=== PATIENT | female | born 1975 | race Hispanic/Latino ===

== ENCOUNTER 2022-07-09 09:22 | Outpatient (CLI) | payer BC | END 2022-07-09 09:23 | disposition home or self-care (01) | LOC: BICMAMMO 09:22 | PROVIDERS: ATTEND Family Medicine | DX: N63.10 Unspecified lump in the right breast, unspecified quadrant (principal) | CPT/HCPCS: 77066; G0279 ==

== ENCOUNTER 2023-09-01 08:44 | Emergency (ER) | payer BC ==
[2023-09-01] MEDS ORDERED: Iopamidol-370 76% 500 ML MDV (1 ML CHARGE) ONE (09:19)
[2023-09-01 10:56] LABS: BHCG - Serum Negative (NEGATIVE); Pregs Control Background? CLEAR/WHITE (CLR/WHITE); Pregs Control Bar Appear? YES (CONTROL BAR)
[2023-09-01] MEDS ORDERED: Morphine 4 MG/ML VIAL ONE (10:56)
[2023-09-01] MEDS ORDERED: Ondansetron PF 4 MG/2 ML Vial ONE ×2 (10:57→11:32)
[2023-09-01 11:00] LABS: #Basophils 0.04 10x3/uL (0.0-0.2); %Basophils 0.9 % (0.0-1.0); %Eosinophils 3.5 % (0.0-10.0); %Lymphocytes 12.3 % (21.0-51.0); %Monocytes 8.3 % (0.0-10.0); %Neutrophils 74.8 % (42.0-75.0); Hematocrit 33.9 % (36.0-47.0); Hemoglobin 10.9 g/dL (12.0-16.0); Mean Corpuscular HGB CONC 32.2 g/dL (32.0-36.0); Mean Corpuscular Hemoglobin 31.1 pg (27.0-31.0); Mean Corpuscular Volume 96.9 fL (78.0-98.0); Platelet Count 146 10x3/uL (130-400); RBC Distribution Width 17.1 % (11.5-14.5)
[2023-09-01 11:06] LABS: ALT (SGPT) 27 U/L (8-55); AST (SGOT) 39 U/L (5-34); Albumin 3.1 g/dL (3.5-5.0); Alkaline Phosphatase 324 U/L (40-110); Anion Gap 19 mmol/L (10-20); BUN (Urea Nitrogen) 56 mg/dL (7.0-18.7); Bilirubin, Total 1.2 mg/dL (0.2-1.2); Calc. Creatinine Clearance 0 mL/min (70-130); Calcium 9.9 mg/dL (7.8-10.44); Carbon Dioxide 25 mmol/L (22-29); Chloride 96 mmol/L (98-107); Estimated GFR 8; Globulin 4.1 g/dL (2.4-3.5); Glucose 203 mg/dL (70-105); Lipase 53 U/L (8-78); Potassium 4.4 mmol/L (3.5-5.1); Protein, Total 7.2 g/dL (6.0-8.3); Sodium 136 mmol/L (136-145)
[2023-09-01 12:02] LABS: Troponin I 0.016 ng/mL (< 0.028)
== END 2023-09-01 12:24 | disposition home or self-care (01) ==
LOC: ERS 08:44
DX: I12.0 Hypertensive chronic kidney disease with stage 5 chronic kidney disease or end stage renal disease (principal); E11.22 Type 2 diabetes mellitus with diabetic chronic kidney disease; N18.6 End stage renal disease; R10.9 Unspecified abdominal pain; Z79.4 Long term (current) use of insulin; Z79.899 Other long term (current) drug therapy
CPT/HCPCS: 36416; 74177; 80053; 83690; 84484; 84703; 85025; 93005; 96374; 96375; J2270; J2405; Q9967

== ENCOUNTER 2024-01-23 11:44 | Inpatient (IN) | payer BC ==
[2024-01-23] MEDS ORDERED: Iopamidol-370 76% 500 ML MDV (1 ML CHARGE) ONE (12:26)
[2024-01-23 12:31] LABS: #Basophils 0.04 10x3/uL (0.0-0.2); %Basophils 0.3 % (0.0-1.0); %Eosinophils 1.4 % (0.0-10.0); %Lymphocytes 5.4 % (21.0-51.0); %Monocytes 4.9 % (0.0-10.0); %Neutrophils 86.5 % (42.0-75.0); Hematocrit 36.7 % (36.0-47.0); Hemoglobin 11.6 g/dL (12.0-16.0); Mean Corpuscular HGB CONC 31.6 g/dL (32.0-36.0); Mean Corpuscular Hemoglobin 30.4 pg (27.0-31.0); Mean Corpuscular Volume 96.1 fL (78.0-98.0); Mean Platelet Volume 12.2 fL (7.4-10.4); Platelet Count 172 10x3/uL (130-400); RBC Distribution Width 17.4 % (11.5-14.5); Red Blood Cell (RBC) Count 3.82 mill/uL (4.20-5.40)
[2024-01-23 12:50] LABS: ALT (SGPT) 33 U/L (8-55); AST (SGOT) 38 U/L (5-34); Albumin 2.9 g/dL (3.5-5.0); Alkaline Phosphatase 676 U/L (40-110); Anion Gap 14 mmol/L (10-20); BUN (Urea Nitrogen) 19 mg/dL (7.0-18.7); Bilirubin, Total 2.8 mg/dL (0.2-1.2); Calc. Creatinine Clearance 0 mL/min (70-130); Calcium 9.4 mg/dL (7.8-10.44); Carbon Dioxide 31 mmol/L (22-29); Chloride 93 mmol/L (98-107); Estimated GFR 18; Globulin 5.3 g/dL (2.4-3.5); Glucose 173 mg/dL (70-105); Magnesium 2.1 mg/dL (1.6-2.6); Potassium 3.3 mmol/L (3.5-5.1); Protein, Total 8.2 g/dL (6.0-8.3); Sodium 135 mmol/L (136-145)
[2024-01-23 12:54] LABS: Troponin I 0.017 ng/mL (< 0.028)
[2024-01-23] MEDS ORDERED: Cefepime 1 GM VIAL ONE (14:16)
[2024-01-23] MEDS ORDERED: Sodium Chloride 0.9% 100 ML ONE (14:16)
[2024-01-23] MEDS ORDERED: Vancomycin 1 GM/200 ML (FROZEN) BAG ONE (14:18)
[2024-01-23] MEDS ORDERED: Ipratropium/Albuterol 3 ML NEB NEB PRN (18:04)
[2024-01-23] MEDS ORDERED: Dextrose 50% Abboject 50 ML SYRINGE SLOW IVP PRN (18:05)
[2024-01-23] MEDS ORDERED: Glucagon 1 MG/ML KIT IM PRN (18:05)
[2024-01-23] MEDS ORDERED: Dextrose 5% in Water 1,000 ML IV PRN (18:05)
[2024-01-23] MEDS: Budesonide 0.5 MG/2 ML NEB INH SCH (19:20)
[2024-01-23] MEDS: Ipratropium/Albuterol 3 ML NEB NEB SCH (19:21)
[2024-01-23] MEDS: HYDROcodone/Acetaminophen 5/325 mg Tablet PO PRN (21:17)
[2024-01-23] MEDS: Insulin Regular, Human 100 UNIT/ML 10 ML VIAL SC PRN (21:18)
[2024-01-23] MEDS: Heparin 5,000 UNITS/ML VIAL SC SCH (21:20)
[2024-01-23 21:28] VITALS: BMI 31.1
[2024-01-23] MEDS ORDERED: Vancomycin Diaylsis Sliding Scale (Wt 71-99) FS SCH (21:45)
[2024-01-23] MEDS: Vancomycin HCl 750 MG in Sodium Chloride 0.9% 250 ML 250 ML IVPB SCH (22:22)
[2024-01-23] MEDS: Vancomycin 1 GM in Premix 1 BAG IVPB SCH (22:38)
[2024-01-24 05:09] LABS: #Basophils 0.03 10x3/uL (0.0-0.2); %Basophils 0.3 % (0.0-1.0); %Eosinophils 1.7 % (0.0-10.0); %Lymphocytes 6.1 % (21.0-51.0); %Monocytes 5.7 % (0.0-10.0); %Neutrophils 85.1 % (42.0-75.0); Hematocrit 34.4 % (36.0-47.0); Mean Corpuscular Hemoglobin 29.7 pg (27.0-31.0); Mean Platelet Volume 12.4 fL (7.4-10.4); Platelet Count 174 10x3/uL (130-400); RBC Distribution Width 17.8 % (11.5-14.5)
[2024-01-24 05:27] LABS: Phosphorus 3.4 mg/dL (2.3-4.7)
[2024-01-24 05:28] LABS: ALT (SGPT) 25 U/L (8-55); AST (SGOT) 27 U/L (5-34); Albumin 2.6 g/dL (3.5-5.0); Alkaline Phosphatase 591 U/L (40-110); Anion Gap 15 mmol/L (10-20); BUN (Urea Nitrogen) 29 mg/dL (7.0-18.7); Bilirubin, Total 2.7 mg/dL (0.2-1.2); Calc. Creatinine Clearance 22 mL/min (70-130); Calcium 9.4 mg/dL (7.8-10.44); Carbon Dioxide 28 mmol/L (22-29); Chloride 94 mmol/L (98-107); Estimated GFR 12; Globulin 4.7 g/dL (2.4-3.5); Glucose 141 mg/dL (70-105); Potassium 4.4 mmol/L (3.5-5.1); Protein, Total 7.3 g/dL (6.0-8.3); Sodium 133 mmol/L (136-145)
[2024-01-24] MEDS ORDERED: Iopamidol-370 76% 500 ML MDV (1 ML CHARGE) ONE (09:18)
[2024-01-24] MEDS: Carvedilol 6.25 MG TAB PO SCH ×2 (10:21→17:22)
[2024-01-24 11:06] LABS: Fluid, pH - Pleural Fld 7.482 (7.60 - 7.66)
[2024-01-24] MEDS: Lidocaine 1% (PF) 30 ML VIAL ONE (11:36)
[2024-01-24 12:34] LABS: RBC Count-Automated (BF) 19364 /cu.mm; WBC/Nucleated-Auto (BF) 27 /cu.mm
[2024-01-24] MEDS: Insulin Regular, Human 100 UNIT/ML 10 ML VIAL SC PRN (12:50)
[2024-01-24] MEDS: Ondansetron ODT 4 MG TAB PO PRN (13:09)
[2024-01-24 13:40] LABS: Pleural Fluid, Protein 4.2 g/dL
[2024-01-24 13:44] LABS: BF Color Red; Body Fluid Source Thoracentesis Fluid; Clarity Cloudy/Turbid (Clear); Tube # EDTA
[2024-01-24 13:53] LABS: BF Segmented Neutrophils 12 %; Cell Count Non Hematic 39 %; Lymphocytes 49 %
[2024-01-24] MEDS: Cefepime 1 GM in Sodium Chloride 0.9% 100 ML IVPB SCH (15:05)
[2024-01-24] MEDS ORDERED: Non-Formulary Item 1 EACH (Carvedilol [Coreg] 12.5 MG Tablet) PO SCH (17:00)
[2024-01-24] MEDS ORDERED: NIFEDIPINE 90 MG PO SCH (21:00)
[2024-01-24] MEDS: Heparin 5,000 UNITS/ML VIAL SC SCH (21:07)
[2024-01-24] MEDS: Insulin Glargine 30 UNITS/0.3 ML VIAL SC SCH (21:08)
[2024-01-25 04:51] LABS: #Basophils 0.04 10x3/uL (0.0-0.2); %Basophils 0.4 % (0.0-1.0); %Eosinophils 2.2 % (0.0-10.0); %Lymphocytes 9.4 % (21.0-51.0); %Monocytes 5.4 % (0.0-10.0); %Neutrophils 81.7 % (42.0-75.0); Hematocrit 31.8 % (36.0-47.0); Hemoglobin 10.1 g/dL (12.0-16.0); Mean Corpuscular HGB CONC 31.8 g/dL (32.0-36.0); Mean Corpuscular Hemoglobin 30.7 pg (27.0-31.0); Mean Corpuscular Volume 96.7 fL (78.0-98.0); Mean Platelet Volume 11.8 fL (7.4-10.4); Platelet Count 188 10x3/uL (130-400); RBC Distribution Width 17.8 % (11.5-14.5); Red Blood Cell (RBC) Count 3.29 mill/uL (4.20-5.40)
[2024-01-25 05:13] LABS: ALT (SGPT) 23 U/L (8-55); AST (SGOT) 26 U/L (5-34); Albumin 2.4 g/dL (3.5-5.0); Alkaline Phosphatase 608 U/L (40-110); Anion Gap 15 mmol/L (10-20); BUN (Urea Nitrogen) 46 mg/dL (7.0-18.7); Bilirubin, Total 2.5 mg/dL (0.2-1.2); Calc. Creatinine Clearance 16 mL/min (70-130); Calcium 9.3 mg/dL (7.8-10.44); Carbon Dioxide 28 mmol/L (22-29); Chloride 94 mmol/L (98-107); Estimated GFR 9; Globulin 4.5 g/dL (2.4-3.5); Glucose 70 mg/dL (70-105); Potassium 4.4 mmol/L (3.5-5.1); Protein, Total 6.9 g/dL (6.0-8.3); Sodium 133 mmol/L (136-145)
[2024-01-25] MEDS: EPOETIN ALFA-EPBX (ESRD) 10,000 UNITS/ML VIAL SC SCH (08:38)
[2024-01-25] MEDS: NIFEdipine XL 90 MG ER.TAB PO SCH (08:39)
[2024-01-25] MEDS: Sertraline 25 MG TAB PO SCH (08:40)
[2024-01-25] MEDS: Pantoprazole DR 40 MG TAB PO SCH (08:40)
[2024-01-25] MEDS ORDERED: EPOETIN ALFA-EPBX 10,000 UNITS/ML VIAL SC SCH (09:00)
[2024-01-25] MEDS ORDERED: Non-Formulary Item 1 EACH (Omeprazole [Omeprazole] 20 MG Tablet.Dr) PO SCH (09:00)
[2024-01-25] MEDS: diphenhydrAMINE 25 MG CAP PO PRN (10:50)
[2024-01-25] MEDS: Insulin Regular, Human 100 UNIT/ML 10 ML VIAL SC PRN (18:01)
[2024-01-25] MEDS: Senokot S 8.6-50 MG TAB PO SCH (20:28)
[2024-01-26 04:32] LABS: #Basophils 0.05 10x3/uL (0.0-0.2); %Basophils 0.4 % (0.0-1.0); %Lymphocytes 7.1 % (21.0-51.0); %Monocytes 5.6 % (0.0-10.0); %Neutrophils 83.4 % (42.0-75.0); Hematocrit 31.1 % (36.0-47.0); Hemoglobin 9.8 g/dL (12.0-16.0); Mean Corpuscular HGB CONC 31.5 g/dL (32.0-36.0); Mean Corpuscular Hemoglobin 30.3 pg (27.0-31.0); Mean Corpuscular Volume 96.3 fL (78.0-98.0); Mean Platelet Volume 11.5 fL (7.4-10.4); Platelet Count 188 10x3/uL (130-400); RBC Distribution Width 17.7 % (11.5-14.5); Red Blood Cell (RBC) Count 3.23 mill/uL (4.20-5.40)
[2024-01-26 04:52] LABS: Anion Gap 18 mmol/L (10-20); BUN (Urea Nitrogen) 59 mg/dL (7.0-18.7); Calc. Creatinine Clearance 13 mL/min (70-130); Carbon Dioxide 25 mmol/L (22-29); Chloride 94 mmol/L (98-107); Estimated GFR 7; Glucose 136 mg/dL (70-105); Potassium 5.4 mmol/L (3.5-5.1); Sodium 132 mmol/L (136-145)
[2024-01-26 05:15] LABS: HBSAB Concentration 64.66 mIU/mL; HBsAg Index 0.21 S/CO (0-0.99); Hep B Core Total Ab NONREACTIVE (NonReactive); Hep B Core Total Index 0.13 S/CO (0-0.79); Hep B Surf AB REACTIVE (NonReactive); Hep B Surf Ag NONREACTIVE S/CO (NonReactive); Hep C IgG Ab NONREACTIVE S/CO (NonReactive); Hep C Index 0.12 S/CO (0-0.79)
[2024-01-26 08:19] LABS: Vancomycin, Trough 20.7 ug/mL
[2024-01-26] MEDS ORDERED: Heparin 10,000 UNITS/ 10 ML VIAL ONE (08:58)
[2024-01-26] MEDS: Vancomycin 250 MG, Admixture Fee 1 EACH in Sodium Chloride 0.9% 100 ML IVPB SCH (17:13)
[2024-01-27] MEDS: Ondansetron PF 4 MG/2 ML Vial IVP PRN (03:38)
[2024-01-27 04:45] LABS: #Basophils 0.05 10x3/uL (0.0-0.2); %Basophils 0.5 % (0.0-1.0); %Eosinophils 2.3 % (0.0-10.0); %Lymphocytes 7.2 % (21.0-51.0); %Monocytes 6.6 % (0.0-10.0); %Neutrophils 80.9 % (42.0-75.0); Hematocrit 32.2 % (36.0-47.0); Hemoglobin 10.2 g/dL (12.0-16.0); Mean Corpuscular HGB CONC 31.7 g/dL (32.0-36.0); Mean Corpuscular Hemoglobin 29.9 pg (27.0-31.0); Mean Corpuscular Volume 94.4 fL (78.0-98.0); Mean Platelet Volume 11.9 fL (7.4-10.4); Platelet Count 221 10x3/uL (130-400); RBC Distribution Width 17.9 % (11.5-14.5); Red Blood Cell (RBC) Count 3.41 mill/uL (4.20-5.40)
[2024-01-27 04:59] LABS: Anion Gap 13 mmol/L (10-20); BUN (Urea Nitrogen) 30 mg/dL (7.0-18.7); Calc. Creatinine Clearance 20 mL/min (70-130); Calcium 9.1 mg/dL (7.8-10.44); Carbon Dioxide 29 mmol/L (22-29); Chloride 97 mmol/L (98-107); Estimated GFR 11; Glucose 68 mg/dL (70-105); Potassium 4.1 mmol/L (3.5-5.1); Sodium 135 mmol/L (136-145)
[2024-01-27] MEDS ORDERED: Heparin 10,000 UNITS/ 10 ML VIAL ONE (08:56)
[2024-01-27] MEDS: Cefepime 1 GM in Sodium Chloride 0.9% 100 ML IVPB SCH (16:31)
[2024-01-27] MEDS: Insulin Regular, Human 100 UNIT/ML 10 ML VIAL SC PRN (21:30)
[2024-01-28 04:42] LABS: #Basophils 0.06 10x3/uL (0.0-0.2); %Basophils 0.4 % (0.0-1.0); %Eosinophils 1.6 % (0.0-10.0); %Lymphocytes 5.5 % (21.0-51.0); %Monocytes 6.2 % (0.0-10.0); %Neutrophils 84.1 % (42.0-75.0); Hemoglobin 9.9 g/dL (12.0-16.0); Mean Corpuscular HGB CONC 30.9 g/dL (32.0-36.0); Mean Corpuscular Hemoglobin 29.6 pg (27.0-31.0); Mean Corpuscular Volume 95.5 fL (78.0-98.0); Mean Platelet Volume 11.7 fL (7.4-10.4); Platelet Count 237 10x3/uL (130-400); RBC Distribution Width 17.9 % (11.5-14.5); Red Blood Cell (RBC) Count 3.35 mill/uL (4.20-5.40)
[2024-01-28 04:58] LABS: ALT (SGPT) 21 U/L (8-55); AST (SGOT) 27 U/L (5-34); Albumin 2.4 g/dL (3.5-5.0); Alkaline Phosphatase 672 U/L (40-110); Anion Gap 14 mmol/L (10-20); BUN (Urea Nitrogen) 34 mg/dL (7.0-18.7); Bilirubin, Total 2.3 mg/dL (0.2-1.2); Calc. Creatinine Clearance 18 mL/min (70-130); Calcium 9.2 mg/dL (7.8-10.44); Carbon Dioxide 29 mmol/L (22-29); Chloride 97 mmol/L (98-107); Estimated GFR 10; Globulin 4.8 g/dL (2.4-3.5); Glucose 151 mg/dL (70-105); Potassium 4.4 mmol/L (3.5-5.1); Protein, Total 7.2 g/dL (6.0-8.3); Sodium 136 mmol/L (136-145)
[2024-01-28 08:07] LABS: Vancomycin, Trough 14.9 ug/mL
[2024-01-28] MEDS ORDERED: Heparin 10,000 UNITS/ 10 ML VIAL ONE (09:47)
[2024-01-28 14:17] LABS: QuantiFERON-TB Gold Plus Negative (Negative)
[2024-01-28] MEDS: Vancomycin 1 GM in Premix 1 BAG IVPB SCH (17:17)
[2024-01-28 20:36] LABS: Coccidioides ABS (DID) Negative (Neg:<1:2)
[2024-01-29 07:06] LABS: #Basophils 0.07 10x3/uL (0.0-0.2); %Basophils 0.5 % (0.0-1.0); %Eosinophils 1.7 % (0.0-10.0); %Lymphocytes 7.5 % (21.0-51.0); %Monocytes 7.1 % (0.0-10.0); %Neutrophils 80.7 % (42.0-75.0); Hematocrit 30.8 % (36.0-47.0); Hemoglobin 9.6 g/dL (12.0-16.0); Mean Corpuscular HGB CONC 31.2 g/dL (32.0-36.0); Mean Corpuscular Hemoglobin 30.2 pg (27.0-31.0); Mean Corpuscular Volume 96.9 fL (78.0-98.0); Mean Platelet Volume 11.5 fL (7.4-10.4); Platelet Count 235 10x3/uL (130-400); RBC Distribution Width 17.6 % (11.5-14.5); Red Blood Cell (RBC) Count 3.18 mill/uL (4.20-5.40)
[2024-01-29 07:38] LABS: Anion Gap 14 mmol/L (10-20); BUN (Urea Nitrogen) 21 mg/dL (7.0-18.7); Calc. Creatinine Clearance 21 mL/min (70-130); Calcium 9.3 mg/dL (7.8-10.44); Carbon Dioxide 28 mmol/L (22-29); Chloride 97 mmol/L (98-107); Estimated GFR 13; Glucose 130 mg/dL (70-105); Potassium 4.1 mmol/L (3.5-5.1); Sodium 135 mmol/L (136-145)
[2024-01-29] MEDS: Sertraline 25 MG TAB PO SCH (11:18)
[2024-01-29] MEDS: Calcium Carbonate 500 MG ChewTAB PO PRN (12:17)
[2024-01-29] MEDS: Acetaminophen 325 MG TAB PO PRN (13:53)
[2024-01-29 14:41] VITALS: BMI 28.6
[2024-01-29 16:12] LABS: Histoplasma Abs, Quant, DID Negative (Neg:<1:1)
[2024-01-30 04:29] LABS: #Basophils 0.05 10x3/uL (0.0-0.2); %Basophils 0.4 % (0.0-1.0); %Eosinophils 1.8 % (0.0-10.0); %Lymphocytes 7.8 % (21.0-51.0); %Neutrophils 81.4 % (42.0-75.0); Hemoglobin 9.9 g/dL (12.0-16.0); Mean Corpuscular HGB CONC 30.9 g/dL (32.0-36.0); Mean Corpuscular Hemoglobin 30.1 pg (27.0-31.0); Mean Corpuscular Volume 97.3 fL (78.0-98.0); Mean Platelet Volume 11.2 fL (7.4-10.4); Platelet Count 286 10x3/uL (130-400); RBC Distribution Width 17.7 % (11.5-14.5); Red Blood Cell (RBC) Count 3.29 mill/uL (4.20-5.40)
[2024-01-30 04:37] LABS: ALT (SGPT) 20 U/L (8-55); AST (SGOT) 26 U/L (5-34); Albumin 2.4 g/dL (3.5-5.0); Alkaline Phosphatase 653 U/L (40-110); Anion Gap 16 mmol/L (10-20); BUN (Urea Nitrogen) 32 mg/dL (7.0-18.7); Bilirubin, Total 2.3 mg/dL (0.2-1.2); Calc. Creatinine Clearance 16 mL/min (70-130); Calcium 9.7 mg/dL (7.8-10.44); Carbon Dioxide 28 mmol/L (22-29); Chloride 95 mmol/L (98-107); Estimated GFR 10; Globulin 5.5 g/dL (2.4-3.5); Glucose 120 mg/dL (70-105); Potassium 4.3 mmol/L (3.5-5.1); Protein, Total 7.9 g/dL (6.0-8.3); Sodium 135 mmol/L (136-145)
[2024-01-30 07:18] LABS: Vancomycin, Trough 23.6 ug/mL
[2024-01-30] MEDS ORDERED: Heparin 10,000 UNITS/ 10 ML VIAL ONE (10:25)
[2024-01-30] MEDS: Vancomycin 250 MG, Admixture Fee 1 EACH in Sodium Chloride 0.9% 100 ML IVPB SCH (18:59)
[2024-01-31 04:43] LABS: Albumin 2.3 g/dL (3.5-5.0); Anion Gap 16 mmol/L (10-20); BUN (Urea Nitrogen) 20 mg/dL (7.0-18.7); BUN/Creatinine Ratio 5.08; Calc. Creatinine Clearance 22 mL/min (70-130); Calcium 8.7 mg/dL (7.8-10.44); Carbon Dioxide 27 mmol/L (22-29); Chloride 95 mmol/L (98-107); Estimated GFR 13; Glucose 139 mg/dL (70-105); Phosphorus 3.7 mg/dL (2.3-4.7); Sodium 134 mmol/L (136-145)
[2024-01-31 15:56] VITALS: TEMP 97.6
[2024-01-31 16:18] VITALS: BP 132/66
[2024-02-01 16:13] LABS: A/G Ratio 0.6 (0.7-1.7); Albumin 2.7 g/dL (2.9-4.4); Alpha 1 0.4 g/dL (0.0-0.4); Alpha 2 0.8 g/dL (0.4-1.0); Beta 0.9 g/dL (0.7-1.3); Gamma 2.2 g/dL (0.4-1.8); Globulin, Total 4.4 g/dL (2.2-3.9); M-Spike Not Observed g/dL (Not Observed); Protein Electrophoresis Intrp Note: (.)
== END 2024-01-31 18:54 | disposition home or self-care (01) | DRG 871 ==
LOC: ERS 11:44 → 2NO 17:06
PROVIDERS: ADMIT Internal Medicine; ATTEND Internal Medicine
PROC: 5A1D70Z Performance of Urinary Filtration, Intermittent, Less than 6 Hours Per Day (ICD-10-PCS; 2024-01-23)
PROC: 3E03329 Introduction of Other Anti-infective into Peripheral Vein, Percutaneous Approach (ICD-10-PCS; 2024-01-23)
PROC: 0W993ZZ Drainage of Right Pleural Cavity, Percutaneous Approach (ICD-10-PCS; principal; 2024-01-24)
DX: A41.9 Sepsis, unspecified organism (principal); J18.9 Pneumonia, unspecified organism; J96.21 Acute and chronic respiratory failure with hypoxia; N18.6 End stage renal disease; L03.115 Cellulitis of right lower limb; J90 Pleural effusion, not elsewhere classified; E87.1 Hypo-osmolality and hyponatremia; R18.8 Other ascites; I13.0 Hypertensive heart and chronic kidney disease with heart failure and stage 1 through stage 4 chronic kidney disease, or unspecified chronic kidney disease; R65.20 Severe sepsis without septic shock; I50.9 Heart failure, unspecified; E11.22 Type 2 diabetes mellitus with diabetic chronic kidney disease; I07.1 Rheumatic tricuspid insufficiency; E87.5 Hyperkalemia; I37.1 Nonrheumatic pulmonary valve insufficiency; R16.0 Hepatomegaly, not elsewhere classified; F41.9 Anxiety disorder, unspecified; K21.9 Gastro-esophageal reflux disease without esophagitis; F32.A Depression, unspecified; E87.6 Hypokalemia; D63.1 Anemia in chronic kidney disease; E11.649 Type 2 diabetes mellitus with hypoglycemia without coma; E83.52 Hypercalcemia; Z99.2 Dependence on renal dialysis; Z99.81 Dependence on supplemental oxygen; Z79.899 Other long term (current) drug therapy; Z79.84 Long term (current) use of oral hypoglycemic drugs; Z98.890 Other specified postprocedural states; Z79.4 Long term (current) use of insulin
CPT/HCPCS: 36415; 36416; 71045; 71046; 71260; 76705; 80048; 80053; 80069; 80202; 82150; 82945; 83605; 83615; 83735; 83880; 83970; 83986; 84100; 84155; 84157; 84165; 84478; 84484; 85025; 85060; 86480; 86635; 86698; 86704; 86706; 86803; 87040; 87070; 87116; 87205; 87206; 87340; 88112; 88305; 89051; 93005; 93306; 94640; 96365; 96375; J0692; J1642; J1644; J1815; J2405; J3370; J3370-JW; J3371; J7050; J7620; J7626; Q0162; Q5105; Q9967